=== PATIENT | female | born 1955 | race Caucasian/White ===

== ENCOUNTER 2018-06-03 16:34 | Emergency (ER) | payer MEDICARE ==
--- NOTE | 2018-06-03 17:16 | ED Physician Chart ---
ED Chief Complaint/HPI - Patient Information Date Seen:: 06/03/18 Time Seen:: 17:11 Chief Complaint:: pacemaker vibrating humming History of Present Illness:: 62 yr old female s/p pacemaker 12 yrs ago after chemo for breast cancer with hx of low ejecttion fraction cardiomyopathy who today felt like the pacemaker needs a battery it was humming and vibratingand pt gets the battery replaced in the hospital at [facility] by DR ABRAHAM PT HAS NOSX NO PAIN NO SOB NO BRADYCADIA OR TACHYCARDIA Allergies:: Allergies Allergy/AdvReac Type Severity Reaction Status Date / Time Antibiotics Allergy Uncoded 06/03/18 17:10 ED Review of Systems - Review of Systems General/Constitutional: No fever, No chills, No weight loss, No weakness, No diaphoresis, No edema, No loss of appetite Skin: No skin lesions, No rash, No bruising Head: No headache, No light-headedness Eyes: No loss of vision, No pain, No diplopia ENT: No earache, No nasal drainage, No sore throat, No tinnitus Neck: No neck pain, No swelling, No thyromegaly, No stiffness, No mass noted Cardio Vascular: No chest pain, No palpitations, No PND, No orthopnea, No edema Pulmonary: No SOB, No cough, No sputum, No wheezing GI: No nausea, No vomiting, No diarrhea, No pain, No melena, No hematochezia, No constipation, No hematemesis G/U: No dysuria, No frequency, No hematuria Musculoskeletal: No bone or joint pain, No back pain, No muscle pain Endocrine: No polyuria, No polydipsia Psychiatric: No prior psych history, No depression, No anxiety, No suicidal ideation Hematopoietic: No bruising, No lymphadenopathy Allergic/Immuno: No urticaria, No angioedema Neurological: No syncope, No focal symptoms, No weakness, No paresthesia, No headache, No seizure, No dizziness, No confusion, No vertigo ED Past Medical History - Past Medical History Past Medical History: CAD, Other (BREAST CANCER) Surgical History: Pacemaker ED Septic Shock - . Is Septic Shock (SBP<90, OR Lactate>4 mmol\L) present?: No
== END 2018-06-03 17:58 | disposition home or self-care (01) ==
LOC: ER 16:34
DX: T82.199A Other mechanical complication of unspecified cardiac device, initial encounter (principal); I25.10 Atherosclerotic heart disease of native coronary artery without angina pectoris; Z88.1 Allergy status to other antibiotic agents
CPT/HCPCS: 93005; Z7502